=== PATIENT | male | born 1990 | race American Indian/Alaskan Native ===

== ENCOUNTER 2018-12-15 11:37 | Emergency (ER) | payer SELFPAY ==
[2018-12-15 11:52] VITALS: BP 153/91
[2018-12-15] MEDS ORDERED: ROCEPHIN IM STA (12:02)
[2018-12-15] MEDS ORDERED: XYLOCAINE 1% MPF 5 mL INFILTRATI ONE (12:02)
[2018-12-15] MEDS ORDERED: ZITHROMAX PO STA (12:02)
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
[2018-12-15 12:47] LABS: Bilirubin,Urine NEG (Negative); Blood,Urine NEG (Negative); Color,Urine Yellow (Yellow); Mucus,Urine 3+ /HPF
== END 2018-12-15 14:27 | disposition home or self-care (01) ==
LOC: ED 11:37
DX: N48.5 Ulcer of penis (principal); Z20.2 Contact with and (suspected) exposure to infections with a predominantly sexual mode of transmission
CPT/HCPCS: 36415; 81001; 87255; 87591; 96372; 99283; J0696